=== PATIENT | male | born 1985 | race Caucasian/White ===

== ENCOUNTER 2016-12-24 16:41 | Emergency (ER) | payer OTHER ==
[2016-12-24] MEDS ORDERED: KEFLEX500 M4 PO (18:57)
[2016-12-24] MEDS ORDERED: HYDROCODON-ACE1 EA16 PO (18:57)
== END 2016-12-24 19:14 ==
LOC: EDMED 16:41
PROC: 0HQNXZZ Repair Left Foot Skin, External Approach (ICD-10-PCS; principal; 2016-12-24)
PROC: 0Y9N0ZZ Drainage of Left Foot, Open Approach (ICD-10-PCS; 2016-12-24)
DX: S92.422B Displaced fracture of distal phalanx of left great toe, initial encounter for open fracture (principal); W22.8XXA Striking against or struck by other objects, initial encounter; Y92.69 Other specified industrial and construction area as the place of occurrence of the external cause; Y99.0 Civilian activity done for income or pay